=== PATIENT | female | born 1965 | race Caucasian/White ===

== ENCOUNTER 2017-08-04 11:28 | Emergency (ER) | payer OTHER ==
[~2017-08-04] VITALS: Ht 154.9 cm; Wt 83.9 kg
[~2017-08-04 11:28] MED LIST: ANTIHISTAMINE EY5 ML BOTH EYES; Advil,Nuprin,Motrin PO; CIPRO500 MG PO; CIPROFLOXACIN500 M1 PO; CLEOCIN300 MG PO; DITROPAN5 MG PO; ELAVIL25 MG PO; FLUOXETINE HCL20 M1; Flexeril PO; GLIPIZIDE10 MG PO; HYOSCYAMINE PO; HYOSCYAMINE0.375 MG PO; IBUPROFEN800 MG PO; IRON PO; JANUVIA100 MG PO; KEFLEX500 MG PO; LISINOPRIL PO; LOMOTIL TABLET1 EACH PO; Levaquin PO; MEDROXYPROGESTE10 MG; MEGESTROL ACETA20 MG PO; METFORMIN HCL1000 MG PO; METFORMIN PO; MICONAZOLE 324 GM VG; MODAFINIL PO; MODAFINIL200 MG PO; NAPROSYN500 MG PO; NYSTATIN-TRIAMC15 G1 TP; OMEPRAZOLE40 M1 PO; PAXIL10 MG PO; PAXIL20 MG PO; PAXIL40 MG PO; PERCOCET 5/31 TABLET PO; PRAVASTATIN PO; PRINIVIL10 MG PO; PROZAC WEEKLY 990 MG PO; ROBITUSSIN AC,T10 ML PO; SIMVASTATIN PO; SIMVASTATIN20 MG PO; TRAMADOL HCL50 MG PO; TRAZODONE HCL50 MG PO; TROSPIUM CHLORI60 MG PO; TYLENOL EXTRA500 MG PO; ULTRAM50 MG PO; Ultram PO; ZITHROMAX Z-PA250 MG PO; ZOFRAN ODT4 MG PO; ZOLOFT PO; oxycodone PO
[2017-08-04 15:32] VITALS: BP 143/85
== END 2017-08-04 15:33 | disposition home or self-care (01) ==
LOC: EME 11:28
DX: S93.401A Sprain of unspecified ligament of right ankle, initial encounter (principal); E11.9 Type 2 diabetes mellitus without complications; Z88.2 Allergy status to sulfonamides
CPT/HCPCS: 73610; 99281; 99283; J1885

== ENCOUNTER → 2017-10-03 | Outpatient (CLI) | payer OTHER ==
[~2017-10-03] VITALS: Ht 154.9 cm; Wt 83.5 kg
[~2017-10-03] MED LIST changes: +BENTYL10 MG PO; +BREO ELLIPTA 21 EACH IH; +COZAAR25 MG PO; +DEXILANT60 MG PO; +GLUCOPHAGE500 MG PO; +LEVEMIR100 UNIT/2 SC; +LORCET 5-325 M1 EACH PO; +MOBIC7.5 MG PO; +PREMPRO 0.621 TABLET PO; +PROAIR RESPICL90 MCG IH; +ZOCOR40 MG PO
== END | disposition home or self-care (01) ==
LOC: AMB 11:05
PROVIDERS: Internal Medicine
DX: D12.2 Benign neoplasm of ascending colon (principal); D12.5 Benign neoplasm of sigmoid colon; Z80.0 Family history of malignant neoplasm of digestive organs; K64.8 Other hemorrhoids
CPT/HCPCS: 80048; 82948; 88305; 93005